=== PATIENT | female | born 1985 | race Hispanic/Latino ===

== ENCOUNTER 2016-06-25 14:38 | Emergency (ER) | payer BC ==
[2016-06-25 15:21] LABS: Bilirubin Negative (Negative); Blood, Urine Trace (Negative); Clarity Clear (Clear); Glucose, Urine (Dipstick) Negative (Negative); Leukocyte Small (Negative); Nitrite Negative (Negative); Protein, Urine (Dipstick) Negative (Neg-Trace); Specific Gravity, Urine 1.015 (1.005-1.030); Urobilinogen 0.2 mg/dL (0.2-1.0)
[2016-06-25 15:28] LABS: RBC/HPF 0-3 HPF (0-3); Squamous Epithelial 0-3 HPF (0-3); Transitional Epithelial NONE SEEN HPF (0-3); WBC/HPF 0-3 HPF (0-3)
[2016-06-25 15:29] LABS: Bacteria/HPF 1+ HPF (None Seen); Crystals/HPF None Seen HPF (Negative); Hyaline Casts/LPF NONE SEEN LPF (0-3 Hyaline); Other Casts/LPF None Seen LPF (0-3 Hyaline); Oval Fat Bodies/HPF None Seen HPF (None Seen); Renal Epithelial None Seen HPF (0-3); Sperm/HPF None Seen HPF (None Seen); Trichomonas/HPF None Seen HPF (None Seen); Yeast-All Forms None Seen HPF (None Seen)
[2016-06-25] MEDS ORDERED: Oseltamivir 75 MG CAP ONE (15:47)
== END 2016-06-25 16:00 | disposition home or self-care (01) ==
LOC: BURERS 14:38
DX: O99.511 Diseases of the respiratory system complicating pregnancy, first trimester (principal); J11.1 Influenza due to unidentified influenza virus with other respiratory manifestations; O99.341 Other mental disorders complicating pregnancy, first trimester; F41.9 Anxiety disorder, unspecified
CPT/HCPCS: 81003; 81015; 99283